=== PATIENT | male | born 1980 | race Caucasian/White ===

== ENCOUNTER 2016-09-01 19:04 | Emergency (ER) | payer BC | END 2016-09-01 19:45 | disposition home or self-care (01) | LOC: ER 19:04 | DX: M54.5 Low back pain (principal); M79.604 Pain in right leg; G89.29 Other chronic pain; F32.9 Major depressive disorder, single episode, unspecified; W10.9XXA Fall (on) (from) unspecified stairs and steps, initial encounter | CPT/HCPCS: 72100; 73502-RT; 73560-RT; 96374; 99284; J1170 ==